=== PATIENT | female | born 1990 | race Hispanic/Latino ===

== ENCOUNTER 2018-02-06 11:48 | Day surgery (SDC) | payer SELFPAY ==
[2018-02-06 12:36] VITALS: BMI 32.1
[2018-02-06] MEDS ORDERED: Betamet Acet/Betamet Na Ph 30 MG/5 ML VIAL ONE (15:23)
[2018-02-06] MEDS ORDERED: Betamet Acet/Betamet Na Ph 30 MG/5 ML VIAL IM ONE (15:46)
== END 2018-02-06 16:49 | disposition short-term general hospital (02) ==
LOC: L&D/OP 11:48
PROVIDERS: ATTEND Family Medicine
DX: O28.3 Abnormal ultrasonic finding on antenatal screening of mother (principal); O35.8XX0 Maternal care for other (suspected) fetal abnormality and damage, not applicable or unspecified; Q79.3 Gastroschisis
CPT/HCPCS: 51702; 59025; 96372; 96374; 99282; J0702

== ENCOUNTER 2021-10-23 09:45 | Outpatient (CLI) | payer OTHER | END 2021-10-23 09:46 | disposition home or self-care (01) | LOC: BICULT 09:45 | PROVIDERS: ATTEND Family Medicine | DX: O09.892 Supervision of other high risk pregnancies, second trimester (principal); Z3A.20 20 weeks gestation of pregnancy | CPT/HCPCS: 76805 ==